=== PATIENT | female | born 1980 | race Caucasian/White ===

== ENCOUNTER 2017-01-29 09:18 | Emergency (ER) | payer OTHER ==
[~2017-01-29 09:18] MED LIST: CLARITIN D PO; KEFLEX500 M1 PO; MOBIC PO; NO MEDICATIONS; OMEPRAZOLE40 MG PO; PENICILLIN PO; ROBITUSSIN-DM120 ML PO; ULTRAM PO; [UNRECOGNIZED DRUG - OTHER] PO
== END 2017-01-29 11:39 | disposition home or self-care (01) ==
LOC: CED 09:18
DX: S61.212A Laceration without foreign body of right middle finger without damage to nail, initial encounter (principal); F17.200 Nicotine dependence, unspecified, uncomplicated; W45.8XXA Other foreign body or object entering through skin, initial encounter; Y92.009 Unspecified place in unspecified non-institutional (private) residence as the place of occurrence of the external cause
CPT/HCPCS: 12001; 99283